=== PATIENT | female | born 1960 | race Caucasian/White ===

== ENCOUNTER → 2022-02-11 | Outpatient (CLI) | payer BC ==
--- NOTE | 2022-02-11 16:58 | XR ---
EXAMINATION TYPE: XR thoracic spine complete DATE OF EXAM: 02/11/2022 COMPARISON: None HISTORY: Cervicalgia back pain TECHNIQUE: 3 views thoracic spine FINDINGS: Scoliosis is present. There are 12 thoracic type vertebral bodies. T12 ribs appear rudiment joseph. Vertebral body heights are preserved. Disc heights are preserved. IMPRESSION: 1. Mild scoliosis.
--- NOTE | 2022-02-11 17:00 | XR ---
EXAMINATION TYPE: XR cervical spine limited DATE OF EXAM: 02/11/2022 COMPARISON: None HISTORY: Cervicalgia TECHNIQUE: 3 views cervical spine FINDINGS: Prevertebral space is normal. There may be a minimal grade 1 spondylolisthesis of C6 anteri jorge on C7. Posterior spinal lamellar line is intact. The odontoid is limited due to overlying occipu t. Incidental note is made of a prior craniotomy at the edge of the [id number]. IMPRESSION: 1. Suggestion of minimal grade 1 spondylolisthesis of C6 anteriorly on C7. MRI is available if addit ional evaluation would be of benefit
== END | disposition home or self-care (01) ==
LOC: RADXRYALE 09:07
PROVIDERS: ATTEND Nurse Practitioner
DX: M41.84 Other forms of scoliosis, thoracic region (principal)
CPT/HCPCS: 72040; 72072